=== PATIENT | male | born 1975 | race Caucasian/White ===

== ENCOUNTER 2022-10-23 15:51 | Emergency (ER) | payer MEDICARE, MEDICAID, SELFPAY ==
[2022-10-23 15:59] VITALS: BP 111/52; PULSE 68; RESP 18; TEMP 36.4; O2SAT 99; BMI 25.7
--- NOTE | 2022-10-23 16:03 | ED.NURSE ---
talked with poison control about Pinsol ingestion, they said gastric contents may be irritated, and to monitor the patient for the next few hours.
[2022-10-23 16:11] VITALS: O2SAT 98
--- NOTE | 2022-10-23 18:20 | ED.GENADULT ---
HPI - General Adult General Chief complaint: Overdose Stated complaint: Overdose Time Seen by Provider: 10/23/22 16:08 History of Present Illness HPI narrative: 46-year-old male, resident of [facility], here with a cuff cutter after drinking a cup of [place]. Patient was thirsty saw the points on top of the Fridge and had approximately 1 cups worth of liquid. Has not vomited or had any other concerns. This occurred shortly before presenting to the ER. Related Data Home Medications Medication Instructions Recorded Confirmed [id number]-a-[id number] [Beano] PO 12/24/21 12/24/21 bismuth subsalicylate 262 mg 2 tab PO BID 12/24/21 12/24/21 chewable tablet buspirone 10 mg tablet 20 mg PO BID 12/24/21 12/24/21 cetirizine 10 mg tablet 10 mg PO DAILY 12/24/21 12/24/21 chlorhexidine gluconate PO 12/24/21 12/24/21 ergocalciferol (vitamin D2) 50 mcg 2,000 mcg PO DAILY 12/24/21 12/24/21 (2,000 unit) capsule loperamide 1 mg/5 mL oral liquid 1 mg PO 12/24/21 12/24/21 olanzapine 10 mg tablet 10 mg PO QDAY 12/24/21 12/24/21 omeprazole 20 mg capsule,delayed 20 mg PO DAILY 12/24/21 12/24/21 release ondansetron 8 mg disintegrating 8 mg PO PRN 12/24/21 12/24/21 tablet sennosides 8.6 mg tablet 1 mg PO DAILY 12/24/21 12/24/21 trazodone 50 mg tablet 50 mg PO .Bedtime 12/24/21 12/24/21 triamcinolone acetonide 0.147 0.147 topical BID 12/24/21 12/24/21 mg/gram topical aerosol Allergies Allergy/AdvReac Type Severity Reaction Status Date / Time Amoxicillin Allergy Intermediate RASH Uncoded 12/24/21 09:56 Ketamine Allergy Intermediate Vomiting Uncoded 12/24/21 09:56 Red dye Allergy Intermediate Irritable Uncoded 12/24/21 09:56 Cefaclor Allergy Unknown Unknown Uncoded 12/24/21 09:56 Cephalosporins Allergy Unknown Unknown Uncoded 12/24/21 09:56 Sulfa drugs Allergy Unknown Unknown Uncoded 12/24/21 09:56 Sulfamethoxazole Allergy Unknown Unknown Uncoded 12/24/21 09:56 Trimethoprim Allergy Unknown Unknown Uncoded 12/24/21 09:56 Review of Systems Status of ROS: Reports: 6 or more systems reviewed and unremarkable except as noted in History and below (Per cuff cutter) [facility] Medical History Encounter for postoperative care ?Z48.89 - Encounter for other specified surgical aftercare (ICD-10) Encounter for follow-up ?Z09 - Encounter for follow-up examination after completed treatment for conditions other than malignant neoplasm (ICD-10) Social History Smoking Status: Never smoker Exam Narrative: Exam Narrative: Well-nourished patient in no acute distress. Awake and happy. He is interactive. He speaks only a few words, this is normal for him. HEENT: atraumatic. Pupils are equally round reactive to light. Extraocular muscles are intact. Conjunctivae are moist without any icterus noted. Moist mucous membranes. Neck is soft. Cardiovascular: Heart is regular rate and rhythm . Lungs: Clear to auscultation bilaterally no wheezes rhonchi or rales are appreciated. Patient takes deep breaths without any discomfort. Abdomen: Soft and nontender nondistended with normal bowel sounds. No guarding or rebound. Extremities: Bilateral lower extremities are without edema. Skin: Well perfused without any obvious rashes. Const: Vital Signs, click to edit/add: Vital Signs - 24 hr 10/23/22 15:59 10/23/22 16:11 Temperature 97.6 F Pulse Rate [Right Pulse Oximeter] 68 Respiratory Rate 18 Blood Pressure [Le ft Upper Arm] 111/52 L Pulse Oximetry 99 98 Oxygen Delivery Me thod Room Air Course Course Hospital Course: Poison control was contacted and he recommended monitoring for 2 hours, GI upset being the most common symptom. At around the end of our 1 he did have a large emesis of [place] scented vomitus. Patient was monitored for a total of 2-1/2 hours without any problems. He remained hemodynamically stable. He nap it for a little bit, woke up acting like his normal self. Vital Signs Vital signs: Initial Vital Signs Temperature 97.6 F 10/23/22 15:59 Temperature Source Temporal Artery Scan 10/23/22 15:59 Pulse Rate 68 10/23/22 15:59 Respiratory Rate 18 10/23/22 15:59 Blood Pressure 111/52 L 10/23/22 15:59 Blood Pressure Mean 71 10/23/22 15:59 Blood Pressure Position Sitting 10/23/22 15:59 Pulse Oximetry 99 10/23/22 15:59 Oxygen Delivery Method Room Air 10/23/22 15:59 Vital Signs Temperature 97.6 F 10/23/22 15:59 Pulse Rate 68 10/23/22 15:59 Respiratory Rate 18 10/23/22 15:59 Blood Pressure 111/52 L 10/23/22 15:59 Pulse Oximetry 99 10/23/22 15:59 Oxygen Delivery Method Room Air 10/23/22 15:59 Temperature 97.6 F 10/23/22 15:59 Pulse Rate 68 10/23/22 15:59 Respiratory Rate 18 10/23/22 15:59 Blood Pressure 111/52 L 10/23/22 15:59 Pulse Oximetry 98 10/23/22 16:11 Oxygen Delivery Method Room Air 10/23/22 15:59 Medical Decision Making MDM Narrative Medical decision making narrative: 46-year-old male with intellectual disability presenting with ingestion of [place]. Monitoring per above. Discharge back to [facility] in stable condition. Medical Records Medical records reviewed: Yes I reviewed the patient's medical records Discharge Plan Discharge Clinical Impression: Accidental drug ingestion Patient Disposition: Home w/ Parent or Adult Condition: Stable Prescriptions: No Action omeprazole 20 mg capsule,delayed release(DR/EC) 20 mg PO DAILY triamcinolone acetonide 0.147 mg/gram aerosol 0.147 topical BID bismuth subsalicylate 262 mg tablet,chewable 2 tab PO BID buspirone 10 mg tablet 20 mg PO BID loperamide 1 mg/5 mL liquid 1 mg PO cetirizine 10 mg tablet 10 mg PO DAILY trazodone 50 mg tablet 50 mg PO .Bedtime sennosides 8.6 mg tablet 1 mg PO DAILY olanzapine 10 mg tablet 10 mg PO QDAY chlorhexidine gluconate PO [id number] [Beano] PO ondansetron 8 mg tablet,disintegrating 8 mg PO PRN ergocalciferol (vitamin D2) 50 mcg (2,000 unit) capsule 2,000 mcg PO DAILY Follow Up/Referrals: Dontae Le MD [Primary Care Provider] - Stand Alone Forms: [employer] Info Instructions
[2022-10-23 18:23] VITALS: BP 107/55; PULSE 65; RESP 18; O2SAT 97
== END 2022-10-23 18:42 | disposition home or self-care (01) ==
PROVIDERS: Emergency Provider Family Medicine; PCP Family Medicine
DX: T55.1X1A Toxic effect of detergents, accidental (unintentional), initial encounter (principal)
CPT/HCPCS: 94761; 99283; 99284

== ENCOUNTER 2023-08-05 12:27 | Emergency (ER) | payer MEDICARE, MEDICAID, SELFPAY ==
[2023-08-05 12:42] VITALS: BP 113/55; PULSE 60; RESP 16; TEMP 36.6; O2SAT 97
--- NOTE | 2023-08-05 12:48 | ED_ITS ---
HPI - Fall General Chief Complaint: Fall/Minor Trauma Stated Complaint: fall Time Seen by Provider: 08/05/23 12:48 History of Present Illness HPI Narrative: Patient is a 47-year-old [facility] resident who stumbled in his living location yesterday striking left eye. He has small skin tear over the lateral upper eyelid. This has turned mildly propofol with some bruising ecchymosis. He has no limitations of vision perceived in the left eye end has no limitations of the range of motion of his left eye. Undo to the bruising is brought in for further evaluation. He has had no change in his behavior. He is largely nonverbal secondary to profound intellectual disability. He is basically in for wound check and to assess his overall function. There are no changes in his medication and he seems to be behaving just fine. Related Data Home Medications Medication Instructions Recorded Confirmed ndrra-s-fmiqtlhixasro [Beano] PO 12/24/21 12/24/21 bismuth subsalicylate 262 mg 2 tab PO BID 12/24/21 12/24/21 chewable tablet buspirone 10 mg tablet 20 mg PO BID 12/24/21 12/24/21 cetirizine 10 mg tablet 10 mg PO DAILY 12/24/21 12/24/21 chlorhexidine gluconate PO 12/24/21 12/24/21 ergocalciferol (vitamin D2) 50 mcg 2,000 mcg PO DAILY 12/24/21 12/24/21 (2,000 unit) capsule loperamide 1 mg/5 mL oral liquid 1 mg PO 12/24/21 12/24/21 olanzapine 10 mg tablet 10 mg PO QDAY 12/24/21 12/24/21 omeprazole 20 mg capsule,delayed 20 mg PO DAILY 12/24/21 12/24/21 release ondansetron 8 mg disintegrating 8 mg PO PRN 12/24/21 12/24/21 tablet sennosides 8.6 mg tablet 1 mg PO DAILY 12/24/21 12/24/21 trazodone 50 mg tablet 50 mg PO .Bedtime 12/24/21 12/24/21 triamcinolone acetonide 0.147 0.147 topical BID 12/24/21 12/24/21 mg/gram topical aerosol Allergies Allergy/AdvReac Type Severity Reaction Status Date / Time Amoxicillin Allergy Intermediate RASH Uncoded 12/24/21 09:56 Ketamine Allergy Intermediate Vomiting Uncoded 12/24/21 09:56 Red dye Allergy Intermediate Irritable Uncoded 12/24/21 09:56 Cefaclor Allergy Unknown Unknown Uncoded 12/24/21 09:56 Cephalosporins Allergy Unknown Unknown Uncoded 12/24/21 09:56 Sulfa drugs Allergy Unknown Unknown Uncoded 12/24/21 09:56 Sulfamethoxazole Allergy Unknown Unknown Uncoded 12/24/21 09:56 Trimethoprim Allergy Unknown Unknown Uncoded 12/24/21 09:56 Review of Systems Status of ROS: Reports: 10 or more systems reviewed and unremarkable except as noted in History and below [facility] Medical History Encounter for postoperative care ?Z48.89 - Encounter for other specified surgical aftercare (ICD-10) Encounter for follow-up ?Z09 - Encounter for follow-up examination after completed treatment for conditions other than malignant neoplasm (ICD-10) Social History Smoking Status: Never smoker Exam Narrative: Exam Narrative: EXAM GENERAL: Patient appears comfortable and well. He does have some bruising over the upper eyelid on the left as well as a small skin tear proximally woman cm in length. No signs of infection. EYES: No scleral icterus. ENT: Tympanic membranes and oropharynx normal. THYROID: no thyroid nodules or thyromegaly. LYMPH: No supraclavicular or cervical lymphadenopathy. SKIN: Visible skin seen during exam normal or with benign process only. EXT: No dependent lower extremity pedal edema. HEART: Regular rate and rhythm with no murmurs, rubs, or gallops. LUNGS: Clear to auscultation bilaterally with no crackles or wheezes. ABD: Soft, non tender, non distended. PSYCH: Good eye contact, speech is not pressured. Const: Vital Signs, click to edit/add: Vital Signs - 24 hr 08/05/23 12:42 Temperature 97.8 F Pulse Rate [Pulse Oximeter] 60 Respiratory Rate 16 Blood Pressure [Le ft Upper Arm] 113/55 L Pulse Oximetry 97 Oxygen Delivery Me thod Room Air Course Course ED Course: Patient seen examined. I do not believe further imaging is needed. He appears to be at his baseline and the wound is already storied heel. I did provide reassurance asked him to continue his current care and medications and follow-up with us on a p.r.n. basis. Differential diagnosis includes but not limited to skin tear bruising skull fracture ocular fracture ruptured globe. Vital Signs Vital signs: Initial Vital Signs Temperature 97.8 F 08/05/23 12:42 Temperature Source Temporal Artery Scan 08/05/23 12:42 Pulse Rate 60 08/05/23 12:42 Respiratory Rate 16 08/05/23 12:42 Blood Pressure 113/55 L 08/05/23 12:42 Blood Pressure Mean 74 08/05/23 12:42 Blood Pressure Position Sitting 08/05/23 12:42 Pulse Oximetry 97 08/05/23 12:42 Oxygen Delivery Method Room Air 08/05/23 12:42 Vital Signs Temperature 97.8 F 08/05/23 12:42 Pulse Rate 60 08/05/23 12:42 Respiratory Rate 16 08/05/23 12:42 Blood Pressure 113/55 L 08/05/23 12:42 Pulse Oximetry 97 08/05/23 12:42 Oxygen Delivery Method Room Air 08/05/23 12:42 Temperature 97.8 F 08/05/23 12:42 Pulse Rate 60 08/05/23 12:42 Respiratory Rate 16 08/05/23 12:42 Blood Pressure 113/55 L 08/05/23 12:42 Pulse Oximetry 97 08/05/23 12:42 Oxygen Delivery Method Room Air 08/05/23 12:42 MDM - Fall MDM Narrative Medical decision making narrative: As above. Discharge Plan Discharge Clinical Impression: Contusion Condition: Stable Instructions: Contusion in Adults (ED) Additional Instructions: Continue symptomatic care. Activity Level: No Restrictions Discharge Diet: Regular Prescriptions: No Action omeprazole 20 mg capsule,delayed release(DR/EC) 20 mg PO DAILY triamcinolone acetonide 0.147 mg/gram aerosol 0.147 topical BID bismuth subsalicylate 262 mg tablet,chewable 2 tab PO BID buspirone 10 mg tablet 20 mg PO BID loperamide 1 mg/5 mL liquid 1 mg PO cetirizine 10 mg tablet 10 mg PO DAILY trazodone 50 mg tablet 50 mg PO .Bedtime sennosides 8.6 mg tablet 1 mg PO DAILY olanzapine 10 mg tablet 10 mg PO QDAY chlorhexidine gluconate PO [id number]-[id number] [Beano] PO ondansetron 8 mg tablet,disintegrating 8 mg PO PRN ergocalciferol (vitamin D2) 50 mcg (2,000 unit) capsule 2,000 mcg PO DAILY Follow Up/Referrals: Dontae Le MD [Primary Care Provider] - Stand Alone Forms: [employer] Info Instructions
== END 2023-08-05 13:08 | disposition home or self-care (01) ==
LOC: ED 12:59
PROVIDERS: Emergency Provider Internal Medicine; PCP Family Medicine
DX: S00.12XA Contusion of left eyelid and periocular area, initial encounter (principal); W01.10XA Fall on same level from slipping, tripping and stumbling with subsequent striking against unspecified object, initial encounter
CPT/HCPCS: 99282; 99283

== ENCOUNTER 2024-03-19 19:24 | Emergency (ER) | payer MEDICARE, MEDICAID, SELFPAY ==
[2024-03-19 19:58] VITALS: BP 116/79; PULSE 68; RESP 16; TEMP 36.8; O2SAT 96; BMI 22.2
--- NOTE | 2024-03-19 20:16 | ED_ITS ---
HPI - General Adult General Time Seen by Provider: 20:16 Date Seen: 03/19/24 Chief complaint: Eye Problems Stated complaint: vomiting, eye redness, dizziness Time Seen by Provider: 03/19/24 20:15 Source: patient and other (Caregiver) Mode of arrival: ambulatory Limitations: no limitations History of Present Illness HPI narrative: 48-year-old male from [facility] who presents today with crusting of the left eye, also vomiting, ?lethargy and difficulty walking this afternoon. Patient woke up this morning with some crusting and redness of the left eye, this got better during the course the day but then this evening patient has been a little less active than usual, vomiting several times after dinner. No diarrhea. Ate well prior to this. No recent fall or injury. No observed discomfort although patient is minimally verbal. Related Data Home Medications ?Medication ?Instructions ?Recorded ?Confirmed ssvts-b-tfqlywsgsjvwo [Beano] PO 12/24/21 12/24/21 bismuth subsalicylate 262 mg 2 tab PO BID 12/24/21 12/24/21 chewable tablet buspirone 10 mg tablet 20 mg PO BID 12/24/21 12/24/21 cetirizine 10 mg tablet 10 mg PO DAILY 12/24/21 12/24/21 chlorhexidine gluconate PO 12/24/21 12/24/21 ergocalciferol (vitamin D2) 50 mcg 2,000 mcg PO DAILY 12/24/21 12/24/21 (2,000 unit) capsule loperamide 1 mg/5 mL oral liquid 1 mg PO 12/24/21 12/24/21 olanzapine 10 mg tablet 10 mg PO QDAY 12/24/21 12/24/21 omeprazole 20 mg capsule,delayed 20 mg PO DAILY 12/24/21 12/24/21 release ondansetron 8 mg disintegrating 8 mg PO PRN 12/24/21 12/24/21 tablet sennosides 8.6 mg tablet 1 mg PO DAILY 12/24/21 12/24/21 trazodone 50 mg tablet 50 mg PO .Bedtime 12/24/21 12/24/21 triamcinolone acetonide 0.147 0.147 topical BID 12/24/21 12/24/21 mg/gram topical aerosol Previous Rx's ?Medication ?Instructions ?Recorded erythromycin 5 mg/gram (0.5 %) eye 1 applic ophthalmic (eye) BID 5 03/20/24 ointment days #3.5 grams ondansetron 4 mg disintegrating 4 mg PO Q6H PRN nausea and 03/20/24 tablet vomiting #20 tabs Allergies Allergy/AdvReac Type Severity Reaction Status Date / Time Amoxicillin Allergy Intermediate RASH Uncoded 12/24/21 09:56 Ketamine Allergy Intermediate Vomiting Uncoded 12/24/21 09:56 Red dye Allergy Intermediate Irritable Uncoded 12/24/21 09:56 Cefaclor Allergy Unknown Unknown Uncoded 12/24/21 09:56 Cephalosporins Allergy Unknown Unknown Uncoded 12/24/21 09:56 Sulfa drugs Allergy Unknown Unknown Uncoded 12/24/21 09:56 Sulfamethoxazole Allergy Unknown Unknown Uncoded 12/24/21 09:56 Trimethoprim Allergy Unknown Unknown Uncoded 12/24/21 09:56 [facility] Medical History Encounter for postoperative care ?Z48.89 - Encounter for other specified surgical aftercare (ICD-10) Encounter for follow-up ?Z09 - Encounter for follow-up examination after completed treatment for conditions other than malignant neoplasm (ICD-10) Social History Smoking Status: Never smoker Exam Narrative: Exam Narrative: General: Well-developed and well-nourished, no acute distress. Vomit on his sh irt and jacket. Head: Abrasion on the top of the head Eyes: Pupils are equal reactive, extraocular motions intact, conjunctiva clear ENT: External nose and ears are normal, posterior pharynx without erythema or exudate Neck: No midline cervical tenderness, full spontaneous range of motion the neck, trachea midline, no adenopathy Heart: Regular rate and rhythm no murmurs or thrills Lungs: Clear to auscultation bilaterally without wheezes or crackles Abdomen: Soft, nontender, nondistended with active bowel sounds Musculoskeletal: No tenderness, deformity, or edema Neurologic: Awake, alert, and oriented x3, no gross focal neurologic deficits, cranial nerves intact as tested Psych: Mood and affect are appropriate Skin: No rashes Const: Vital Signs, click to edit/add: Vital Signs - 24 hr 03/19/24 19:58 Temperature 98.2 F Pulse Rate [Pulse Oximeter] 68 Respiratory Rate 16 Blood Pressure [Ri ght Upper Arm] 116/79 Pulse Oximetry 96 Oxygen Delivery Me thod Room Air Course Course ED Course: Patient seen and examined, presents with left eye redness, nausea, vomiting. Vomiting this afternoon, also some redness of the left eye. On exam, patient appears comfortable, interactive. The left eye is mildly injected but pupils reactive and no ciliary flush to suggest acute angle closure glaucoma. With crusting redness, suspect conjunctivitis and erythromycin ointment will be prescribed. Additionally the patient with vomiting tonight, and a little bit less active than usual. He does have an abrasion on the top of the head, no known fall, head CT is ordered. Heart is regular, lungs are clear, no abdominal tenderness. Due to patient being minimally able to participate with exam, broad differential although given no abdominal tenderness, will avoid CT testing for n ow pending lab results. Zofran ordered. Reevaluation(s) Time of Reevaluation #1: 22:15 Reevaluation #1: Delay in care due to patient uncooperative with imaging. Oral ativan and Zofran given earlier to try to facilitate evaluation. May need sedation to allow for cares. Time of Reevaluation #2: 22:40 Reevaluation #2: Chest x-ray independently interpreted by me negative for acute findings. EKG independently interpreted by me performed at 10:44 p.m. demonstrates sinus rhythm rate 64, no acute ST elevations or depressions, normal intervals, normal axis, ME 196, QTC 420. No to prior for comparison. Time of Reevaluation #3: 23:21 Reevaluation #3: Labs independently interpreted by me with normal basic panel, normal hepatic panel, normal lipase, negative respiratory panel, normal troponin. Additional Reevaluation(s): 12:[address] scan of the head independently interpreted by me negative for acute findings. 12:37 a.m. reviewed radiology interpretation CT scan of the abdomen and pelvis which demonstrates constipation but no acute obstruction or other intra- abdominal findings. CT scan of the head negative for acute findings as well. Patient is stable for discharge with outpatient follow-up. Zofran and dietary recommendations reviewed with staff. Vital Signs Vital signs: Initial Vital Signs Temperature 98.2 F 03/19/24 19:58 Temperature Source Temporal Artery Scan 03/19/24 19:58 Pulse Rate 68 03/19/24 19:58 Respiratory Rate 16 03/19/24 19:58 Blood Pressure 116/79 03/19/24 19:58 Blood Pressure Mean 91 03/19/24 19:58 Blood Pressure Position Sitting 03/19/24 19:58 Pulse Oximetry 96 03/19/24 19:58 Oxygen Delivery Method Room Air 03/19/24 19:58 Vital Signs Temperature 98.2 F 03/19/24 19:58 Pulse Rate 68 03/19/24 19:58 Respiratory Rate 16 03/19/24 19:58 Blood Pressure 116/79 03/19/24 19:58 Pulse Oximetry 96 03/19/24 19:58 Oxygen Delivery Method Room Air 03/19/24 19:58 Temperature 98.2 F 03/19/24 19:58 Pulse Rate 68 03/19/24 19:58 Respiratory Rate 16 03/19/24 19:58 Blood Pressure 116/79 03/19/24 19:58 Pulse Oximetry 96 03/19/24 19:58 Oxygen Delivery Method Room Air 03/19/24 19:58 Medications Administered Medications: Discontinued Medications Generic Name Dose Route Start Last Admin Trade Name Freq PRN Reason Stop Dose Admin Lorazepam 1 mg 03/19/24 21:04 03/19/24 21:12 Lorazepam 1 Mg Tablet PO 03/19/24 21:05 1 mg ONCE ONE Administration Midazolam HCl 5 mg 03/19/24 22:58 03/19/24 23:20 Midazolam Hcl 1 Mg/Ml Inj NOSTRIL-B 03/19/24 22:59 5 mg ONCE ONE Administration Ondansetron HCl 4 mg 03/19/24 20:32 03/19/24 21:08 Ondansetron 2 Mg/Ml Inj IVP 03/19/24 20:33 Not Given ONCE ONE Ondansetron HCl 4 mg 03/19/24 21:04 03/19/24 21:12 Ondansetron Odt 4 Mg Tab PO 03/19/24 21:05 4 mg ONCE ONE Administration Medical Decision Making Lab Data Labs: Lab Results 03/19/24 03/19/24 03/19/24 Range/Units 20:33 22:30 22:32 WBC 9.24 (4.50-11.00) K/uL RBC 4.50 (4.30-5.90) m/uL Hgb 14.7 (13.5-17.5) gm/dL Hct 42.4 (37.0-53.0) % MCV 94 (80-100) fL MCH 33 (26-34) pg MCHC 35 (32-36) gm/dL RDW Coeff of Husam 12.4 (11.5-15.5) % Plt Count 139 L (140-440) K/uL Neut % (Auto) 85.1 H (42.0-72.0) % Lymph % (Auto) 9.8 L (20-44) % Lawrence % (Auto) 4.7 (0.0-11.0) % Eos % (Auto) 0.1 (0.0-7.0) % Baso % (Auto) 0.2 (0.0-3.0) % Neut # (Auto) 7.90 H (1.7-7.0) K/uL Lymph # (Auto) 0.90 (0.90-2.90) K/uL Lawrence # (Auto) 0.40 (0.00-0.90) K/UL Eos # (Auto) 0.01 (0.00-0.50) K/uL Baso # (Auto) 0.02 (0.00-0.30) K/uL Abs Immat Gran (auto) 0.01 (0.00-0.30) K/uL Imm/Tot Granulo (auto) 0.1 % Sodium 135 (135-149) mmol/L Potassium 3.5 L (3.6-5.1) mmol/L Chloride 98 (96-114) mmol/L Carbon Dioxide 32 (20-32) mmol/L Anion Gap 5 L (7-15) mEq/L BUN 22 (7-30) mg/dL Creatinine 0.6 (0.5-1.5) mg/dL Estimated Creat Clear 125.80 Estimated GFR 118 ml/min Glucose 121 H (60-115) mg/dL Calcium 9.5 (8.4-10.6) mg/dL Magnesium 2.2 (1.5-2.6) mg/dL Total Bilirubin 0.8 (0.1-1.5) mg/dL Direct Bilirubin 0.1 (0.0-0.5) mg/dL AST 27 (12-35) U/L ALT 19 (4-50) U/L Alkaline Phosphatase 77 (40-150) U/L Total Protein 7.0 (6.0-8.3) g/dL Albumin 4.4 (3.3-5.0) g/dL Lipase 83 (23-300) U/L SARS-CoV-2 (PCR) Negative SARS-CoV-2 (Negative) Influenza Type A (PCR) Negative PCR FLU A (Negative) Influenza Type B (PCR) Negative PCR FLU B (Negative) RSV (PCR) Negative PCR RSV (Negative) POC Troponin I 0.00 L (0.01-0.04) ng/ml Discharge Plan Discharge Clinical Impression: Conjunctivitis of left eye, Nausea and vomiting Patient Disposition: Home w/ Parent or Adult Condition: Stable Instructions: Acute Nausea and Vomiting (ED), Conjunctivitis (ED) Additional Instructions: Liquid diet for 24 hours and then advance to bland diet for Zofran as needed for nausea vomiting Activity Level: Activity as Tolerated Discharge Diet: Full Liquid Prescriptions: New erythromycin 5 mg/gram (0.5 %) ointment 1 applic ophthalmic (eye) BID 5 Days Qty: 3.5 0RF ondansetron 4 mg tablet,disintegrating 4 mg PO Q6H PRN (Reason: nausea and vomiting) Qty: 20 0RF No Action omeprazole 20 mg capsule,delayed release(DR/EC) 20 mg PO DAILY triamcinolone acetonide 0.147 mg/gram aerosol 0.147 topical BID bismuth subsalicylate 262 mg tablet,chewable 2 tab PO BID buspirone 10 mg tablet 20 mg PO BID loperamide 1 mg/5 mL liquid 1 mg PO cetirizine 10 mg tablet 10 mg PO DAILY trazodone 50 mg tablet 50 mg PO .Bedtime sennosides 8.6 mg tablet 1 mg PO DAILY olanzapine 10 mg tablet 10 mg PO QDAY chlorhexidine gluconate PO vakud-a-dygolalsflylg [Beano] PO ondansetron 8 mg tablet,disintegrating 8 mg PO PRN ergocalciferol (vitamin D2) 50 mcg (2,000 unit) capsule 2,000 mcg PO DAILY Follow Up/Referrals: Dontae Le MD [Primary Care Provider] - Stand Alone Forms: [facility] Info Instructions
--- NOTE | 2024-03-19 20:32 | CRLHL7_ITS ---
For Patients: As a result of the Century Cures Act, medical imaging exams and procedure reports are released immediately into your electronic medical record. You may view this report before your referring provider. If you have questions, please contact your health care provider. INDICATION: Head injury, vomiting. TECHNIQUE: CT head without contrast. COMPARISON: 08/14/2020. FINDINGS: CSF spaces: Within normal limits for age. Brain parenchyma: The carrillo-white differentiation is maintained. No sign of mass, hemorrhage, or midline shift. Skull base and calvarium: Mild polypoid mucosal thickening in the maxillary sinuses. Moderate right and severe left mastoid effusions. Opacification of the left middle ear cavity. The visualized orbits are grossly unremarkable. No skull fractures. IMPRESSION: 1. No acute intracranial hemorrhage or mass effect. 2. Moderate right and severe left mastoid effusions. Please note that all CT scans at this facility use dose modulation, iterative reconstruction, and/or weight-based dosing when appropriate to reduce radiation dose to as low as reasonably achievable. Dictated by Osiel Ambrose MD @ 03/20/2024 12:22:44 AM (Electronically Signed)
[2024-03-19] MEDS: ONDANSETRON ODT 4 MG TAB PO (21:12)
[2024-03-19] MEDS: LORazepam 1 MG TABLET PO (21:12)
--- NOTE | 2024-03-19 22:06 | CRLHL7_ITS ---
For Patients: As a result of the Century Cures Act, medical imaging exams and procedure reports are released immediately into your electronic medical record. You may view this report before your referring provider. If you have questions, please contact your health care provider. INDICATION: Vomiting, weakness. TECHNIQUE: Chest 1 view. COMPARISON: None. FINDINGS: Cardiovascular and mediastinum: Heart size and vasculature are normal in caliber and appearance. Lungs and pleural spaces: Lungs are clear. No sign of infiltrate or mass. No sign of pleural effusion. No pneumothorax. Bones and soft tissues: No significant findings. IMPRESSION: No evidence of acute pulmonary process. Dictated by Osiel Ambrose MD @ 03/19/2024 10:38:26 PM (Electronically Signed)
[2024-03-19 22:43] LABS: Basophils Absolute Auto 0.02 K/uL (0.00-0.30); Basophils Percent Auto 0.2 % (0.0-3.0); Eosinophils Absolute Auto 0.01 K/uL (0.00-0.50); Eosinophils Percent Auto 0.1 % (0.0-7.0); Hematocrit 42.4 % (37.0-53.0); Hemoglobin* 14.7 gm/dL (13.5-17.5); Immature Granulocytes Abs Auto 0.01 K/uL (0.00-0.30); Immature Granulocytes Pct Auto 0.1 %; Lymphocytes Percent Auto 9.8 % (20-44); Mean Corpuscular HGB Conc 35 gm/dL (32-36); Mean Corpuscular Hemoglobin 33 pg (26-34); Mean Corpuscular Volume 94 fL (80-100); Monocytes Percent Auto 4.7 % (0.0-11.0); Neutrophils Percent Auto 85.1 % (42.0-72.0); Platelet Count* 139 K/uL (140-440); RDW Coefficient of Variation % 12.4 % (11.5-15.5); White Blood Count* 9.24 K/uL (4.50-11.00)
[2024-03-19 22:47] LABS: Slide Review Reflex No
[2024-03-19 22:55] LABS: Albumin* 4.4 g/dL (3.3-5.0); Chloride* 98 mmol/L (96-114); Potassium* 3.5 mmol/L (3.6-5.1); Sodium* 135 mmol/L (135-149)
[2024-03-19 22:57] LABS: Anion Gap 5 mEq/L (7-15); Carbon Dioxide* 32 mmol/L (20-32); Creatinine* 0.6 mg/dL (0.5-1.5); Estimated Glomerular Filt Rate 118 ml/min
[2024-03-19 22:58] LABS: Alanine Aminotransferase* 19 U/L (4-50); Alkaline Phosphatase* 77 U/L (40-150); Aspartate Amino Transferase* 27 U/L (12-35); Bilirubin Direct* 0.1 mg/dL (0.0-0.5); Bilirubin Total* 0.8 mg/dL (0.1-1.5); Blood Urea Nitrogen* 22 mg/dL (7-30); Calcium* 9.5 mg/dL (8.4-10.6); Glucose* 121 mg/dL (60-115); Lipase* 83 U/L (23-300); Magnesium* 2.2 mg/dL (1.5-2.6)
--- NOTE | 2024-03-19 23:02 | CRLHL7_ITS ---
For Patients: As a result of the Century Cures Act, medical imaging exams and procedure reports are released immediately into your electronic medical record. You may view this report before your referring provider. If you have questions, please contact your health care provider. INDICATION: Vomiting. TECHNIQUE: CT abdomen and pelvis without contrast. COMPARISON: None. FINDINGS: Lower chest: Unremarkable. Liver: Normal in size and attenuation. Gallbladder and bile ducts: No stones or inflammation. No biliary ductal dilatation. Spleen: Normal in size. Adrenal glands: Normal in size. No nodules. Pancreas: No inflammation. Kidneys: Normal in size. No stones or hydronephrosis. GI tract: Moderate to large colonic stool load. No evidence of obstruction. Normal appendix. Lymph nodes: No lymphadenopathy. Vasculature: Abdominal aorta is normal in caliber. Abdominal wall/Omentum/Peritoneum: Unremarkable. No free air or significant free fluid. Pelvis: Prostatomegaly. Bones: Degenerative changes. IMPRESSION: 1. No acute abdominal or pelvic abnormality on this noncontrast examination. 2. Moderate to large colonic stool load, likely reflecting constipation. 3. Prostatomegaly. Please note that all CT scans at this facility use dose modulation, iterative reconstruction, and/or weight-based dosing when appropriate to reduce radiation dose to as low as reasonably achievable. Dictated by Osile Ambrose MD @ 03/20/2024 12:25:21 AM (Electronically Signed)
[2024-03-19 23:19] LABS: PCR FLU A Negative PCR FLU A (Negative); PCR FLU B Negative PCR FLU B (Negative); PCR RSV Negative PCR RSV (Negative); SARS PCR* Negative SARS-CoV-2 (Negative)
[2024-03-19] MEDS: MIDAZOLAM HCL 1 MG/ML inj 5 MG NOSTRIL-B (23:20)
[2024-03-19 23:22] VITALS: PULSE 88; O2SAT 98
[2024-03-19 23:30] VITALS: PULSE 76; RESP 16; O2SAT 98
[2024-03-19 23:45] VITALS: PULSE 74; O2SAT 96
[2024-03-19 23:54] VITALS: PULSE 69; O2SAT 96
[2024-03-20] VITALS: PULSE 66; O2SAT 97
[2024-03-20 00:15] VITALS: PULSE 65; O2SAT 95
[2024-03-20 00:30] VITALS: PULSE 60; O2SAT 95
[2024-03-20 00:45] VITALS: PULSE 64; RESP 18; O2SAT 96
== END 2024-03-20 01:16 | disposition home or self-care (01) ==
PROVIDERS: Emergency Provider Family Medicine; PCP Family Medicine
DX: H10.9 Unspecified conjunctivitis (principal); R11.2 Nausea with vomiting, unspecified
CPT/HCPCS: 36415; 70450; 71045; 74176; 80048; 80076; 83690; 83735; 84484; 85025; 87631; 93005; 96374; 99284; 99285; A9270; J2250

== ENCOUNTER 2024-05-08 20:44 | Emergency (ER) | payer MEDICARE, MEDICAID, SELFPAY ==
[2024-05-08 21:03] VITALS: BP 96/55; PULSE 66; RESP 16; TEMP 36.8; O2SAT 98
--- NOTE | 2024-05-08 21:28 | ED_ITS ---
HPI - General Adult General Chief complaint: Fall/Minor Trauma Stated complaint: Head trauma & laceration Time Seen by Provider: 05/08/24 21:17 History of Present Illness HPI narrative: This 48-year-old male is a resident at [facility]. He slipped in the shower and fell. It was a witnessed event. He did not have loss of consciousness and has been behaving normally since then. He does have a small laceration on his forehead. Related Data Home Medications ?Medication ?Instructions ?Recorded ?Confirmed oiwia-b-ufcgylqwupjwt [Beano] PO 12/24/21 12/24/21 bismuth subsalicylate 262 mg 2 tab PO BID 12/24/21 12/24/21 chewable tablet buspirone 10 mg tablet 20 mg PO BID 12/24/21 12/24/21 cetirizine 10 mg tablet 10 mg PO DAILY 12/24/21 12/24/21 chlorhexidine gluconate PO 12/24/21 12/24/21 ergocalciferol (vitamin D2) 50 mcg 2,000 mcg PO DAILY 12/24/21 12/24/21 (2,000 unit) capsule loperamide 1 mg/5 mL oral liquid 1 mg PO 12/24/21 12/24/21 olanzapine 10 mg tablet 10 mg PO QDAY 12/24/21 12/24/21 omeprazole 20 mg capsule,delayed 20 mg PO DAILY 12/24/21 12/24/21 release ondansetron 8 mg disintegrating 8 mg PO PRN 12/24/21 12/24/21 tablet sennosides 8.6 mg tablet 1 mg PO DAILY 12/24/21 12/24/21 trazodone 50 mg tablet 50 mg PO .Bedtime 12/24/21 12/24/21 triamcinolone acetonide 0.147 0.147 topical BID 12/24/21 12/24/21 mg/gram topical aerosol Previous Rx's ?Medication ?Instructions ?Recorded erythromycin 5 mg/gram (0.5 %) eye 1 applic ophthalmic (eye) BID 5 03/20/24 ointment days #3.5 grams ondansetron 4 mg disintegrating 4 mg PO Q6H PRN nausea and 03/20/24 tablet vomiting #20 tabs Allergies Allergy/AdvReac Type Severity Reaction Status Date / Time Amoxicillin Allergy Intermediate RASH Uncoded 12/24/21 09:56 Ketamine Allergy Intermediate Vomiting Uncoded 12/24/21 09:56 Red dye Allergy Intermediate Irritable Uncoded 12/24/21 09:56 Cefaclor Allergy Unknown Unknown Uncoded 12/24/21 09:56 Cephalosporins Allergy Unknown Unknown Uncoded 12/24/21 09:56 Sulfa drugs Allergy Unknown Unknown Uncoded 12/24/21 09:56 Sulfamethoxazole Allergy Unknown Unknown Uncoded 12/24/21 09:56 Trimethoprim Allergy Unknown Unknown Uncoded 12/24/21 09:56 Review of Systems Status of ROS: Reports: unobtainable due to mental status [facility] Medical History Encounter for postoperative care ?Z48.89 - Encounter for other specified surgical aftercare (ICD-10) Encounter for follow-up ?Z09 - Encounter for follow-up examination after completed treatment for conditions other than malignant neoplasm (ICD-10) Social History Smoking Status: Never smoker Exam Narrative: Exam Narrative: Constitutional: Well-developed, well-nourished, no acute distress. HEENT: 2 cm linear laceration in the middle of the forehead. There is no underlying swelling and no active bleeding. Neck: Normal range of motion. Nontender. Supple. Heart: Intact distal pulses. Lungs: No chest discomfort. No wheezes, rhonchi, or rales. Abdomen: Nontender. Back: Normal range of motion. Extremities: Normal range of motion. No injury. Skin: Intact. No rash. Warm. No erythema or pallor. Neurologic: No altered sensation. No weakness. Alert. Nursing notes and vitals signs are reviewed. Const: Vital Signs, click to edit/add: Vital Signs - 24 hr 05/08/24 21:03 Temperature 98.3 F Pulse Rate [Pulse Oximeter] 66 Respiratory Rate 16 Blood Pressure [Ri ght Upper Arm] 96/55 L Pulse Oximetry 98 Oxygen Delivery Me thod Room Air Course Vital Signs Vital signs: Initial Vital Signs Temperature 98.3 F 05/08/24 21:03 Temperature Source Temporal Artery Scan 05/08/24 21:03 Pulse Rate 66 05/08/24 21:03 Respiratory Rate 16 05/08/24 21:03 Blood Pressure 96/55 L 05/08/24 21:03 Blood Pressure Mean 68 L 05/08/24 21:03 Blood Pressure Position Sitting 05/08/24 21:03 Pulse Oximetry 98 05/08/24 21:03 Oxygen Delivery Method Room Air 05/08/24 21:03 Vital Signs Temperature 98.3 F 05/08/24 21:03 Pulse Rate 66 05/08/24 21:03 Respiratory Rate 16 05/08/24 21:03 Blood Pressure 96/55 L 05/08/24 21:03 Pulse Oximetry 98 05/08/24 21:03 Oxygen Delivery Method Room Air 05/08/24 21:03 Temperature 98.3 F 05/08/24 21:03 Pulse Rate 66 05/08/24 21:03 Respiratory Rate 16 05/08/24 21:03 Blood Pressure 96/55 L 05/08/24 21:03 Pulse Oximetry 98 05/08/24 21:03 Oxygen Delivery Method Room Air 05/08/24 21:03 Medical Decision Making MDM Narrative Medical decision making narrative: This patient has a small laceration on his forehead. He is a resident at [facility]. He is brought in for evaluation according to their protocol. He did not have loss of consciousness and is not showing any sign of neurologic deficit or complication from this fall. His wound was cleansed and repaired with Dermabond. He is okay to be discharged to resume current plans. Discharge Plan Discharge Clinical Impression: Forehead laceration Patient Disposition: Home w/ Parent or Adult Condition: Stable Additional Instructions: Keep wound clean and dry. Follow up with MD as needed. Continue current plans. Prescriptions: No Action omeprazole 20 mg capsule,delayed release(DR/EC) 20 mg PO DAILY triamcinolone acetonide 0.147 mg/gram aerosol 0.147 topical BID bismuth subsalicylate 262 mg tablet,chewable 2 tab PO BID buspirone 10 mg tablet 20 mg PO BID loperamide 1 mg/5 mL liquid 1 mg PO cetirizine 10 mg tablet 10 mg PO DAILY trazodone 50 mg tablet 50 mg PO .Bedtime sennosides 8.6 mg tablet 1 mg PO DAILY olanzapine 10 mg tablet 10 mg PO QDAY chlorhexidine gluconate PO joatp-a-ahihdmoncqitp [Beano] PO ondansetron 8 mg tablet,disintegrating 8 mg PO PRN ergocalciferol (vitamin D2) 50 mcg (2,000 unit) capsule 2,000 mcg PO DAILY erythromycin 5 mg/gram (0.5 %) ointment 1 applic ophthalmic (eye) BID 5 Days Qty: 3.5 0RF ondansetron 4 mg tablet,disintegrating 4 mg PO Q6H PRN (Reason: nausea and vomiting) Qty: 20 0RF Follow Up/Referrals: Dontae Le MD [Primary Care Provider] - Stand Alone Forms: [employer] Info Instructions
[2024-05-08 21:45] VITALS: BP 110/70; PULSE 68; RESP 16; TEMP 36.8; O2SAT 98
[2024-05-08 21:46] VITALS: BP 110/70; PULSE 68; RESP 16; TEMP 36.8
== END 2024-05-08 21:47 | disposition home or self-care (01) ==
LOC: ED 21:41
PROVIDERS: Emergency Provider Emergency Medicine Emergency Medical Services; PCP Family Medicine
DX: S01.81XA Laceration without foreign body of other part of head, initial encounter (principal); W18.2XXA Fall in (into) shower or empty bathtub, initial encounter; Y92.192 Bathroom in other specified residential institution as the place of occurrence of the external cause
CPT/HCPCS: 12011; 99282; 99284

== ENCOUNTER 2024-10-15 08:32 | Emergency (ER) | payer MEDICARE, MEDICAID, SELFPAY ==
--- OUTSIDE RECORDS SUMMARY | 2024-10-15 08:34 | XMS_ITS | Clinical Summary ---
Author Organization [facility] Address [address] [place] [id number] Care Team Providers Care News Gathering Technician Name Role Phone Dontae Le MD Primary Care Provider Allergies Active Allergy Reactions Criticality Noted Date Comments Amoxicillin-Pot Clavulanate Diarrhea 03/02/2011 Sulfamethoxazole-Trimet hoprim Hives 10/04/2006 Cefaclor Hives 10/04/2006 Cephalosporins Rash 10/17/2013 Ketamine Nausea And Vomiting 10/04/2006 Unlisted Allergen (Include Detail In Comments) Other - Describe In Comment Field 10/04/2006 Red Food Dyes cause Hyperactivity Polymyxin B Sulf-Trimethoprim *Unknown 03/02/2011 Medications triamcinolone (ARISTOCORT; KENALOG) 0.1 % creamIndications :Chronic eczema Apply twice daily to left ear and bilateral popliteal area rashes as needed, not to exceed 10 days per episode. 45 g 03/09/20 18 Active busPIRone (BUSPAR) 10 mg tablet Takes 2 tablets BID 0 07/30/19 21 Active aluminum-mag hydroxide-simeth icone (MAALOX PLUS; MYLANTA) suspension PRN 360 mL 6 07/30/19 21 Active zqkrt-q-dfckrzqo idase (Beano) 150 unit tab PRN 0 07/30/19 21 Active milk of magnesia (Milk of Magnesia) 400 mg/5 mL suspension 2 T per day PRN 1 Bottle 07/30/19 21 Active loperamide (IMODIUM) 2 mg capsule Take 4mg by mouth with 1st loose stool, then 2mg with each subsequent loose stool. Max 16 mg in 24 hrs 48 Capsule 1 07/30/19 21 Active cholecalciferol (Vitamin D-3) 2,000 unit capsule Take 1 Capsule (2,000 units) by mouth once daily. 0 07/30/19 21 Active ARIPiprazole (ABILIFY) 10 mg tablet 06/18/19 22 Active traZODone (DESYREL) 50 mg tabletIndication s:Impulse control disorder 75 mg oral tid 0 07/09/19 22 Active food supplemt, lactose-reduced (Ensure)Indicati ons:Weight loss 1 bottle daily by mouth three times daily. 250 mL 09/04/19 22 Active traZODone (DESYREL) 150 mg tablet Take 150 mg by mouth at bedtime. 06/18/19 24 Active propranoloL (INDERAL) 60 mg tablet Take 60 mg by mouth two times daily. 06/18/19 24 Active OLANzapine (ZYPREXA) 20 mg tablet Take 20 mg by mouth. BID 06/18/19 24 Active ibuprofen (ADVIL; MOTRIN) 200 mg tabletIndication s:Pain 3-4 tablets every 4-6 hours PRN. Max dose of 2400 mg in 24 hours. 100 Tablet 3 10/25/19 24 Active acetaminophen 500 mg tabletIndication s:Pain TAKE 2 TABLETS BY MOUTH 3 TIMES DAILY 540 Tablet 3 07/06/19 25 Active cetirizine 10 mg tabletIndication s:Allergy, sequela Take 1 Tablet (10 mg) by mouth once daily. FOR SEASONAL ALLERGIES, RUNNY NOSE & ITCHY EYES 90 Tablet 2 07/06/19 25 Active sennosides (Senna) 8.6 mg tabletIndication s:Other constipation TAKE 1 TABLET BY MOUTH DAILY 90 Tablet 2 07/06/19 25 Active LORazepam 1 mg tabletIndication s:Anxiety Take 1 tab by mouth as needed 1 hr prior to dental appt 1 Tablet 2 07/19/19 25 Active omeprazole 20 mg Delayed-Release capsuleIndicatio ns:GERD without esophagitis Take 1 Capsule (20 mg) by mouth once daily before a meal. 90 Capsule 3 07/19/19 25 Active ALPRAZolam 0.5 mg tabletIndication s:Anxiety One tablet oral one hour before procedure. May repeat after 30 minutes if sedation inadequate. 2 Tablet 1 08/30/19 25 Active Ear Wax Removal Drops 6.5 % otic solutionIndicati ons:Bilateral impacted cerumen PLACE 5-10 DROPS INTO EACH EAR TWICE DAILY FOR 3 DAYS A MONTH NEEDED FOR WAX BUILD UP 15 mL 11 09/29/19 25 Active carbamide peroxide (Ear Wax Removal Drops) 6.5 % otic solutionIndicati ons:Bilateral impacted cerumen PLACE 5-10 DROPS INTO EACH EAR TWICE DAILY FOR 3 DAYS A MONTH NEEDED FOR WAX BUILD UP 15 mL 08/26/19 24 025 Discontinued Active Problems Problem Noted Date Diagnosed Date Mastoiditis of both sides 08/20/2020 Constipation 01/20/2016 Self-injurious behavior 11/30/2014 Blastocystis hominis infection 06/10/2012 Unspecified Mental Retardation ADHD (attention deficit hyperactivity disorder) Overview (07/02/2009): Updated by system to replace inactive record Impulse control disorder Anxiety State, Unspecified Allergy Resolved Problems Problem Noted Date Diagnosed Date Resolved Date Nonsuicidal self-harm 06/08/20242024 Constipation 02/11/2016 02/11/2016 Encounters Date Type Department Care Team Description 09/26/2024 Refill [facility] [address] [place] [address] Dontae Le MD Refill Request (Ear Wax Removal Drops) 09/07/2024 8:30 AM CDT Anesthesia Event [facility] [address] [place] [address] Brook Beltre CRNA Allen, Skye Bowen, LESTER 09/07/2024 6:59 AM CDT - 09/07/2024 8:15 AM CDT Hospital Encounter [facility] [address] [place] [address] Jane Henderson DDS Discharge Disposition: Home Self Care 09/07/2024 Travel 08/29/2024 10:55 AM CDT Office Visit [facility] [address] [place] [address] Dontae Le MD Preoperative Exam (DOS: 09/07/2024, dental procedures, Dr. Henderson, [facility]) 08/29/2024 Telephone [facility] [address] [place] [address] Dontae Le MD FYI (FYI) 08/29/2024 Travel 07/18/2024 3:20 PM CDT Office Visit [facility] [address] [place] [place] [address] Dontae Le MD Medicare ANNUAL (subsequent) Visit (48 year old) 07/18/2024 Travel from Last 3 Months Immunizations Immunization Administration Dates Next Due COVID-19 vaccine (Moderna 10 0mcg/0.5mL) PF, MDV 03/07/2021,06/12/2020,05/15/2020 INFLUENZA, IIV3 PF (AGE >= 6 MO) 02/09/2024 Influenza A (H1N1), Inactivated 04/09/2009 Influenza Virus, Unspecified 01/29/2016 Influenza, IIV3 (Age >=3 years) 01/31/2015,03/24 Influenza, IIV4 01/27/2022,03/02/2019,02/06/2017 Influenza, IIV4 (=>6mos) MDV 02/11/2021,01/22/20 20 Influenza,CCIIV4 PRESERV FREE 02/07/2018 Pneumococcal Poly,23-Valent (Pneumovax) 12/29/19 13 Td, Preservative Free (age >= 7 Years) 7 Tdap 11/16/2006 Tuberculin (PPD) 11/17/2007,11/16/2006 Family History Medical History Relation Name Comments Psychiatric illness Mother depressi on Cancer-colon Neg. 1 Cancer-prostate Neg. 2 Diabetes Neg. 3 Heart Disease Neg. 4 Anesthesia Problem No Family History Relation Name Status Comments Mother Neg. 1 Neg. 2 Neg. 3 Neg. 4 Social History Tobacco Use Types Packs/Day Years Used Date Smoking Tobacco: Never Smokeless Tobacco: Never Tobacco Cessation:Counseling Given: No Alcohol Use Standard Drinks/Week Comments No 0 (1 standard drink = 0.6 oz pur e alcohol) Financial Resource Strain Answer Date R ecorded Difficulty of Paying Living Expenses Not on file 04/19/2021 Difficulty of Paying Living Expenses Not on file 04/19/2021 Sex and Gender Information Value Date Recorded Sex Assigned at Not on file Legal Sex Male 5:23 AM INTEGRATION TECHNICIAN Gender Identity Not on file Sexual Orientation Not on file Obstetrics History Last Filed Vital Signs Vital Sign Reading Time Taken Comments Blood Pressure 102/65 04/26/2023 10:05 AM INTEGRATION TECHNICIAN Pulse 66 10/25/2023 11:22 AM CDT Temperature 35.7 C (96.3 F) 11/08/2020 12:40 PM CDT Respiratory Rate 16 11/16/2006 9:00 AM CDT Oxygen Saturation 93% 10/25/2023 11:22 AM CDT Inhaled Oxygen Concentration - - Weight 54.6 kg (120 lb 6.4 oz) 08/29/2024 11:06 AM CDT Height 166.8 cm (5' 5.67) 08/29/2024 11:06 AM C DT Body Mass Index 19.63 08/29/2024 11:06 AM CDT Plan of Treatment Upcoming Encounters Date Type Department Care Team (Late st Contact Info) Description 11/01/2024 3:45 PM CDT Office Visit [facility] [address] [place] [address] Dontae Le MD [address] [place] [address] 11/20/2024 10:00 AM CDT Hospital Encounter [facility] [address] [place] [address] Jane Henderson DDS [address] [place] [address] 11/20/2024 10:00 AM CDT - 11/20/2024 2:[address] [facility] [address] [place] [address] Jane Henderson DDS [address] [place] [address] comprehensive exam full mouth rads, dental cleaning or periodontal therapy, restorative work and/or extractions 07/20/2025 2:05 PM CDT Office Visit [facility] [address] [facility] [address] Dontae Le MD [address] [place] [address] Scheduled Procedures Name Priority Associated Diagnoses Date/Ti me RESTORATIONISM DENTAL WITH XRAY Dental disease Developmental disability 11/20/2024 10:00 AM CDT Health Maintenance Due Date Last Done Comments Hepatitis B series for 19+ ( 1 of 3 - 19+ 3-dose series) 1992 Fecal testing non-DNA (FIT,FOBT,iFOBT) for age 45-75 08/20/2023 08/19/2022, 07/24/2021 Pneumococcal series for age 50+ (2 of 2 - PCV) 11/08/2023 12/28/2012 Zoster (shingles) series for age 50+ (1 of 2) 11/08/2023 BMI (ht and wt on same day) for age 18+ 08/29/2025 08/29/2024, 07/18/2024, 07/16/2023, Additional history exists Lipids for age 45-75 07/08/2026 07/08/2021, 03/22/2019, 03/30/2018, Additional history exists Tetanus booster 03/02/2027 03/02/2017, 11/16/2006 Tdap Completed 11/16/2006 HIV for age 15-65 Completed 04/26/2023 Hepatitis C screening for ag e 18-79 Completed 04/26/2023 COVID-19 vaccine series Completed 02/09/20 24, 01/27/2022, 03/07/2021, Additional history exists Influenza Vaccine Completed 02/09/2024, , 02/11/2021, Additional history exists Goals Goal Patient Goal Type Associated Problems Recent Progress Patient-Stated? Author Autogenera minnie Goal Care Plan Autogenerated Problem No Mychart, Provider Procedures Procedure Name Priority Date/Time Associated Diagnosis Comments ANTI HIV 1/2 Routine 04/26/2023 10:35 AM INTEGRATION TECHNICIAN Screening for HIV (human immunodeficiency virus) ANTI HCV Routine 04/26/2023 10:35 AM INTEGRATION TECHNICIAN Need for hepatitis C screening test OCCULT BLOOD IFOBT STOOL Routine 08/19/2022 2:03 PM CDT Screening for colon cancer LIPID PANEL W REFLEX MEASURED LDL Routine 07/08/2021 10:23 AM CDT Lipid screening RESTORATIONISM DENTAL WITH XRAY Dental disease Developmental disability from Last 3 Months or Most Recently Relevant to Health Maintenance Results * ANTI HCV (04/26/2023 10:35 AM INTEGRATION TECHNICIAN) HEPATITIS C ANTIBODY Non-Reacti ve Non-React shalom 04/26/2023 5:49 PM INTEGRATION TECHNICIAN [facility] Comment:Please note, per www .CDC.gov: If a patient is known to be at high risk of HCV infection, or is symptomatic, and the physician's suspicion of HCV infection is high, HCV RNA testing is often employed and is of diagnostic value, even after an initial negative anti-HCV test result. Blood BLOOD SPECIMEN / Unknown Butterfly / Unknown 04/26/2023 10:35 AM INTEGRATION TECHNICIAN 04/26/2023 10:40 AM INTEGRATION TECHNICIAN us Dontae Le MD SEND OUTS Final Result [facility] [address] [place] [address], * ANTI HIV 1/2 (04/26/2023 10:35 AM INTEGRATION TECHNICIAN) HIV-1/HIV-2 SCREEN Non-Reacti ve Non-Reacti ve 04/26/2023 5:56 PM INTEGRATION TECHNICIAN [facility] Comment:HIV-1 p24 and HIV-1/ HIV-2 Ab Not Detected. Blood BLOOD SPECIMEN / Unknown Butterfly / Unknown 04/26/2023 10:35 AM INTEGRATION TECHNICIAN 04/26/2023 10:40 AM INTEGRATION TECHNICIAN Dontae Le MD SEND OUTS Final Result [facility] [address] [place] [address], [place] * OCCULT BLOOD IFOBT STOOL (08/19/2022 2:03 PM CDT) STOOL BLOOD ,IFOBT Negative Negative 08/21/2022 3:10 PM CDT [facility] Stool STOOL SPECIMEN / Unknown Non-Blood / Unknown 08/19/2022 2:03 PM CDT 08/21/2022 2:03 PM CDT Dontae Le MD LABORATORY Final Result [facility] [address] [place] [address], [place] [phone] * LIPID PANEL W REFLEX MEASURED LDL (07/08/2021 10:23 AM CDT) CHOLESTEROL,TOTAL 170 100 - 199 mg/dL 07/08/2021 6:26 PM CDT [facility] TRIGLYCERIDES 70 <150 mg/dL 07/08/2021 6:26 PM CDT [facility] HDL CHOLESTEROL 51 >40 mg/dL 6:26 PM CDT [facility] NON-HDL CHOLESTEROL 119 <145 mg/dl 07/08/2021 6:26 PM CDT [facility] CHOL/HDL RATIO 3.33 <4.50 07/08/2021 6:26 PM CDT [facility] LDL CHOLESTEROL 105 <=130 mg/dL 07/08/2021 6:26 PM CDT [facility] VLDL CHOLESTEROL 14 <=30 mg/dL 07/08/2021 6:26 PM CDT [facility] PROVIDER ORDERED STATUS RANDOM 07/08/2021 6:26 PM CDT [facility] Blood BLOOD SPECIMEN / Unknown Venipuncture / Unknown 07/08/2021 10:23 AM CDT 07/08/2021 10:25 AM CDT Dontae Le MD CHEMISTRY Final Result [facility] 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
[2024-10-15 08:47] VITALS: BP 104/57; PULSE 77; RESP 18; TEMP 36.7; O2SAT 93
--- NOTE | 2024-10-15 09:10 | ED.FALL ---
HPI - Fall General Chief Complaint: Fall/Minor Trauma Stated Complaint: Fall Time Seen by Provider: 10/15/24 09:03 History of Present Illness HPI Narrative: Patient is a 48-year-old gentleman who took a fall at [facility] today. Patient has a chronic [facility] patient. He has some bleeding from his nose. Patient got himself up and bleeding was stopped. He has some crusted blood in his nose and around his lips but otherwise is in his usual state. Patient communicates to limited extent but appears to be at his baseline as I know this patient from years past. The fall occurred as result of the trip that occurred in the facility. He had no loss of consciousness and no lacerations. He had no seizure activity. He had no incontinence. He is not complaining her holding any of his extremities. He appears to be at his baseline. Patient is on no anticoagulants and no anti-platelet agents. Related Data Home Medications ?Medication ?Instructions ?Recorded ?Confirmed [id number] [Beano] PO 12/24/21 12/24/21 bismuth subsalicylate 262 mg 2 tab PO BID 12/24/21 12/24/21 chewable tablet buspirone 10 mg tablet 20 mg PO BID 12/24/21 12/24/21 cetirizine 10 mg tablet 10 mg PO DAILY 12/24/21 12/24/21 chlorhexidine gluconate PO 12/24/21 12/24/21 ergocalciferol (vitamin D2) 50 mcg 2,000 mcg PO DAILY 12/24/21 12/24/21 (2,000 unit) capsule loperamide 1 mg/5 mL oral liquid 1 mg PO 12/24/21 12/24/21 olanzapine 10 mg tablet 10 mg PO QDAY 12/24/21 12/24/21 omeprazole 20 mg capsule,delayed 20 mg PO DAILY 12/24/21 12/24/21 release ondansetron 8 mg disintegrating 8 mg PO PRN 12/24/21 12/24/21 tablet sennosides 8.6 mg tablet 1 mg PO DAILY 12/24/21 12/24/21 trazodone 50 mg tablet 50 mg PO .Bedtime 12/24/21 12/24/21 triamcinolone acetonide 0.147 0.147 topical BID 12/24/21 12/24/21 mg/gram topical aerosol Previous Rx's ?Medication ?Instructions ?Recorded erythromycin 5 mg/gram (0.5 %) eye 1 applic ophthalmic (eye) BID 5 03/20/24 ointment days #3.5 grams ondansetron 4 mg disintegrating 4 mg PO Q6H PRN nausea and 03/20/24 tablet vomiting #20 tabs Allergies Allergy/AdvReac Type Severity Reaction Status Date / Time Amoxicillin Allergy Intermediate RASH Uncoded 12/24/21 09:56 Ketamine Allergy Intermediate Vomiting Uncoded 12/24/21 09:56 Red dye Allergy Intermediate Irritable Uncoded 12/24/21 09:56 Cefaclor Allergy Unknown Unknown Uncoded 12/24/21 09:56 Cephalosporins Allergy Unknown Unknown Uncoded 12/24/21 09:56 Sulfa drugs Allergy Unknown Unknown Uncoded 12/24/21 09:56 Sulfamethoxazole Allergy Unknown Unknown Uncoded 12/24/21 09:56 Trimethoprim Allergy Unknown Unknown Uncoded 12/24/21 09:56 Review of Systems Status of ROS: Reports: 10 or more systems reviewed and unremarkable except as noted in History and below [facility] Medical History Encounter for postoperative care ?Z48.89 - Encounter for other specified surgical aftercare (ICD-10) Encounter for follow-up ?Z09 - Encounter for follow-up examination after completed treatment for conditions other than malignant neoplasm (ICD-10) Social History Smoking Status: Never smoker Exam Narrative: Exam Narrative: EXAM GENERAL: Patient appears comfortable and well. Dry blood noted in the nostrils bilaterally as well as around the lips. EYES: No scleral icterus. ENT: Tympanic membranes and oropharynx normal. THYROID: no thyroid nodules or thyromegaly. LYMPH: No supraclavicular or cervical lymphadenopathy. SKIN: Visible skin seen during exam normal or with benign process only. EXT: No dependent lower extremity pedal edema. HEART: Regular rate and rhythm with no murmurs, rubs, or gallops. LUNGS: Clear to auscultation bilaterally with no crackles or wheezes. ABD: Soft, non tender, non distended. PSYCH: Good eye contact, speech is not pressured. Const: Vital Signs, click to edit/add: Vital Signs - 24 hr 10/15/24 08:47 Temperature 98.1 F Pulse Rate [Pulse Oximeter] 77 Respiratory Rate 18 Blood Pressure [Ri ght Upper Arm] 104/57 L Pulse Oximetry 93 Oxygen Delivery Me thod Room Air Course Course ED Course: Patient is a 48-year-old special needs gentleman from [facility] who fell this morning has a bloody nose which is stopped. He is not on any anti-platelet or anticoagulants. He appears to be at his baseline. He will be very difficult to do a CT scan on and I do think that neurologically he is intact and the trauma was minor. At this time I did review the case with the case workers from [facility] they feel comfortable taking him back. We did clean up his blood inspected his nostrils and mouth and provided reassurance. I believe he can continue his current course and medications at [facility] in follow-up on a p.r.n. basis. Vital Signs Vital signs: Initial Vital Signs Temperature 98.1 F 10/15/24 08:47 Temperature Source Temporal Artery Scan 10/15/24 08:47 Pulse Rate 77 10/15/24 08:47 Pulse Rhythm Regular 10/15/24 08:47 Respiratory Rate 18 10/15/24 08:47 Blood Pressure 104/57 L 10/15/24 08:47 Blood Pressure Mean 72 10/15/24 08:47 Blood Pressure Position Sitting 10/15/24 08:47 Pulse Oximetry 93 10/15/24 08:47 Oxygen Delivery Method Room Air 10/15/24 08:47 Vital Signs Temperature 98.1 F 10/15/24 08:47 Pulse Rate 77 10/15/24 08:47 Respiratory Rate 18 10/15/24 08:47 Blood Pressure 104/57 L 10/15/24 08:47 Pulse Oximetry 93 10/15/24 08:47 Oxygen Delivery Method Room Air 10/15/24 08:47 Temperature 98.1 F 10/15/24 08:47 Pulse Rate 77 10/15/24 08:47 Respiratory Rate 18 10/15/24 08:47 Blood Pressure 104/57 L 10/15/24 08:47 Pulse Oximetry 93 10/15/24 08:47 Oxygen Delivery Method Room Air 10/15/24 08:47 Discharge Plan Discharge Clinical Impression: Epistaxis Patient Disposition: Home, Self-Care Condition: Stable Instructions: Nosebleed (ED) Additional Instructions: Continue current care Follow-up as needed. Activity Level: No Restrictions Discharge Diet: Regular Prescriptions: No Action omeprazole 20 mg capsule,delayed release(DR/EC) 20 mg PO DAILY triamcinolone acetonide 0.147 mg/gram aerosol 0.147 topical BID bismuth subsalicylate 262 mg tablet,chewable 2 tab PO BID buspirone 10 mg tablet 20 mg PO BID loperamide 1 mg/5 mL liquid 1 mg PO cetirizine 10 mg tablet 10 mg PO DAILY trazodone 50 mg tablet 50 mg PO .Bedtime sennosides 8.6 mg tablet 1 mg PO DAILY olanzapine 10 mg tablet 10 mg PO QDAY chlorhexidine gluconate PO [id number] [Beano] PO ondansetron 8 mg tablet,disintegrating 8 mg PO PRN ergocalciferol (vitamin D2) 50 mcg (2,000 unit) capsule 2,000 mcg PO DAILY erythromycin 5 mg/gram (0.5 %) ointment 1 applic ophthalmic (eye) BID 5 Days Qty: 3.5 0RF ondansetron 4 mg tablet,disintegrating 4 mg PO Q6H PRN (Reason: nausea and vomiting) Qty: 20 0RF Follow Up/Referrals: Dontae Le MD [Primary Care Provider, Family Practice] Stand Alone Forms: [facility] Info Instructions
== END 2024-10-15 09:56 | disposition home or self-care (01) ==
LOC: ED 19:32
PROVIDERS: Emergency Provider Internal Medicine; PCP Family Medicine
DX: R04.0 Epistaxis (principal); W19.XXXA Unspecified fall, initial encounter
CPT/HCPCS: 99283